=== PATIENT | female | born 1970 | race Caucasian/White ===

== ENCOUNTER 2017-09-16 03:31 | Emergency (ER) | payer SELFPAY ==
[~2017-09-16 03:31] MED LIST: ALBU0.086 INH; ALBU2.5I INH; ALBU8I INH; DUONI NEB; IPRA0.02 INH; PRED20 PO; SYMB80AE INH; VENTAER INH
[2017-09-16 03:50] VITALS: RESP 18; O2SAT 98
[2017-09-16] MEDS ORDERED: ALBUAER3 INH ×2 (03:58→05:45)
[2017-09-16] MEDS ORDERED: SYMB160A INH ×2 (03:58→05:44)
[2017-09-16] MEDS ORDERED: FAMOTIDINE 20 MG/2 ML VIAL IV PUSH SCH (04:00)
[2017-09-16] MEDS ORDERED: LIDOCAINE VISCOUS 2% SOLN 15 ML UDC SWISH-SPIT ONE (04:00)
[2017-09-16] MEDS ORDERED: ALUMINUM/MAGNESIUM/SIMETH 30 ML CUP PO ONE (04:00)
[2017-09-16] MEDS ORDERED: RESP: ALBUTEROL 2.5 MG/IPRATROPIUM 0.5 MG NEB (SCH) NEB ONE (04:00)
[2017-09-16 04:13] LABS: AUTOMATED NEUTROPHIL # 4.6 TH/MM3 (1.8-7.7); BASOPHIL % 0.4 % (0.0-2.0); EOSINOPHIL # 0.5 TH/MM3 (0-0.4); EOSINOPHIL % 5.3 % (0.0-4.0); HEMATOCRIT 41.9 % (35.0-46.0); LYMPH % 35.2 % (9.0-44.0); LYMPHOCYTE # 3.1 TH/MM3 (1.0-4.8); MEAN CELL VOLUME 89.9 FL (80.0-100.0); MEAN CORPUSCULAR HEMOGLOBIN 30.1 PG (27.0-34.0); MEAN CORPUSCULAR HGB CONC 33.5 % (32.0-36.0); MEAN PLATELET VOLUME 7.9 FL (7.0-11.0); MONO % 7.5 % (0.0-8.0); MONOCYTE # 0.7 TH/MM3 (0-0.9); NEUT % 51.6 % (16.0-70.0); PLATELET COUNT 287 TH/MM3 (150-450); RED BLOOD COUNT 4.66 MIL/MM3 (4.00-5.30); RED CELL DISTRIBUTION WIDTH 12.1 % (11.6-17.2); WHITE BLOOD COUNT 8.9 TH/MM3 (4.0-11.0)
[2017-09-16 04:14] LABS: CHLORIDE 107 MEQ/L (98-107); SODIUM (NA) 139 MEQ/L (136-145)
--- NOTE | 2017-09-16 04:14 | RADRPT ---
EXAM DATE/TIME: 09/16/2017 04:01 [place] COMPARISON: CHEST SINGLE AP, January 09, 2016, 21:32. INDICATIONS : Chest pain. MEDICAL HISTORY : None. SURGICAL HISTORY : None. ENCOUNTER: Initial ACUITY: 1 day PAIN SCORE: 8/10 LOCATION: Bilateral chest FINDINGS: A single view of the chest demonstrates the lungs to be symmetrically aerated without evidence of mas s, infiltrate or effusion. The cardiomediastinal contours are unremarkable. Osseous structures are intact. CONCLUSION: No acute disease. Fabricio Mo MD on September 16, 2017 at 4:12 Board Certified Radiologist. This report was verified electronically.
[2017-09-16 04:16] LABS: CALCIUM 8.8 MG/DL (8.5-10.1)
[2017-09-16 04:17] LABS: BICARBONATE 24.5 MEQ/L (21.0-32.0); BLOOD UREA NITROGEN 8 MG/DL (7-18); GLUCOSE,RANDOM 96 MG/DL (74-106)
[2017-09-16 04:20] LABS: CREATININE 0.75 MG/DL (0.50-1.00); GLOMERULAR FILTRATION RATE 83 ML/MIN (>89)
[2017-09-16 04:25] LABS: TROPONIN I LESS THAN 0.02 NG/ML (0.02-0.05)
[2017-09-16 04:42] VITALS: BP 119/75; PULSE 72; RESP 18; O2SAT 99
[2017-09-16] MEDS ORDERED: ONDANSETRON ODT 4 MG TAB PO ONE (04:45)
[2017-09-16] MEDS ORDERED: LORazepam 1 MG TAB PO ONE (04:45)
--- NOTE | 2017-09-16 05:13 | PD ---
HPI . SOB Chief Complaint: Chest Pain Time Seen by Provider: 03:37 Travel History International Travel<30 days: No Contact w/Intl Traveler<30days: No Traveled to known affect area: No History of Present Illness HPI pt comes in to ER at 4 AM with panting moaning presentation of SOB and " heart burn that is causing pain and SOB" pt has Hx of COPD . HAS HAD ADMISSIONS IN THE PAST FOR SAME. SHe is slightly histrionic in her presentation of her current SOB exacerbation, maoning a lot and no obvious resp distress causing her inability to answer in normal conversation of her current ROS and HPI . Reports few days of GERD and ABDO pain localized to stomach and radiation up to throat and that is exacerbating her COPD. not respodingto home HFA of symbicort and PRO- Air , PFSH Past Medical History Asthma: Yes Autoimmune Disease: No Cancer: No Cardiovascular Problems: Yes Chemotherapy: No COPD: Yes Diabetes: No Diminished Hearing: No Endocrine: No Gastrointestinal Disorders: Yes GERD: Yes Hypertension: Yes Immune Disorder: No Implanted Vascular Access Dvce: No Psychiatric: No Reproductive: No Respiratory: Yes Immunizations Current: No Migraines: Yes (A FEW YEARS AGO) Radiation Therapy: No Sickle Cell Disease: No Thyroid Disease: No Influenza Vaccination: No ?: Not Menopausal: Yes Past Surgical History Abdominal Surgery: Yes (c section) AICD: No Arteriovenous Shunt: No Section: Yes Insulin Pump: No Joint Replacement: No Pacemaker: No Other Surgery: Yes (16 YEARS AGO C SECTION) Social History Alcohol Use: Yes (SOCIAL) Tobacco Use: Yes (QUIT -17) Substance Use: Yes ([facility]) Allergies-Medications (Allergen,Severity, Reaction): Coded Allergies: No Known Allergies (Verified Adverse Reaction, Unknown, 09/16/17) Reported Meds & Prescriptions Reported Meds & Active Scripts Active Ativan (Lorazepam) 0.5 Mg Tab 0.5 Mg PO Q8H PRN Zofran Odt (Ondansetron Odt) 4 Mg Tab 4 Mg SL Q6HR PRN Azithromycin 250 Mg Tab 250 Mg PO DIRECTED Take 2 tabs (500 mg) on day 1 then 1 tab daily x 4 days. Proair Hfa 8.5 GM Inh (Albuterol Sulfate) 90 Mcg/Act Aer 2 Puff INH Q4-6H PRN 108 mcg/actuation Prednisone 50 Mg Tab 50 Mg PO DAILY Symbicort Inh (Budesonide/Formoterol Fumarate) 160-4.5 Mcg/Act Aero 2 Puff INH Q12HR Reported Proair Hfa 8.5 GM Inh (Albuterol Sulfate) 90 Mcg/Act Aer 2 Puff INH Q4-6H PRN 108 mcg/actuation Symbicort Inh (Budesonide/Formoterol Fumarate) 160-4.5 Mcg/Act Aero 2 Puff INH Q12HR Review of Systems Except as stated in HPI: all other systems reviewed are Neg Respiratory: Positive: Shortness of Breath, Wheezing Gastrointestinal: Positive: Nausea, Abdominal Pain Physical Exam Narrative GENERAL: APPEARS SOB AND ANXIOUS SKIN: Warm and dry. HEAD: Atraumatic. Normocephalic. EYES: Pupils equal and round. No scleral icterus. No injection or drainage. ENT: No nasal bleeding or discharge. Mucous membranes pink and moist. NECK: Trachea midline. No JVD. CARDIOVASCULAR: Regular rate and rhythm. RESPIRATORY: No accessory muscle use. SLIGHT WHEEZE UPPER EXPIRATORY BILATERAL MOANING WITH EACH EXPIRATION GASTROINTESTINAL: Abdomen soft, non-tender, nondistended. Hepatic and splenic margins not palpable. MUSCULOSKELETAL: Extremities without clubbing, cyanosis, or edema. No obvious deformities. NEUROLOGICAL: Awake and alert. No obvious cranial nerve deficits. Motor grossly within normal limits. Five out of 5 muscle strength in the arms and legs. Normal speech. PSYCHIATRIC: Appropriate mood and affect; insight and judgment normal. Data Data Last Documented VS Vital Signs Date Time Temp Pulse Resp B/P (MAP) Pulse Ox O2 Delivery O2 Flow Rate FiO2 09/16/17 06:27 09/16/17 06:25 74 16 97 Nasal Cannula 2.00 Orders Orders Electrocardiogram (09/16/17 03:47) Complete Blood Count With Diff (09/16/17 03:47) Basic Metabolic Panel (Bmp) (09/16/17 03:47) Ckmb (Isoenzyme) Profile (09/16/17 03:47) Troponin I (09/16/17 03:47) Chest, Single Ap (09/16/17 03:47) Iv Access Insert/Monitor (09/16/17 03:47) Ecg Monitoring (09/16/17 03:47) Oxygen Administration (09/16/17 03:47) Oximetry (09/16/17 03:47) B-Type Natriuretic Peptide (09/16/17 03:47) Albuterol-Ipratropium Neb (Duoneb Neb) (09/16/17 04:00) Famotidine Inj (Pepcid Inj) (09/16/17 04:00) Al-Mag Hy-Si 40-40-4 Mg/Ml Liq (Mag-Al P (09/16/17 04:00) Lidocaine 2% Viscous (Xylocaine 2% Visco (09/16/17 04:00) CKMB (09/16/17 03:45) CKMB% (09/16/17 03:45) Lorazepam (Ativan) (09/16/17 04:45) Ondansetron Odt (Zofran Odt) (09/16/17 04:45) Prednisone (Deltasone) (09/16/17 05:30) Ed Discharge Order (09/16/17 06:05) Labs Laboratory Tests Test 09/16/17 03:45 White Blood Count 8.9 TH/MM3 Red Blood Count 4.66 MIL/MM3 Hemoglobin 14.0 GM/DL Hematocrit 41.9 % Mean Corpuscular Volume 89.9 FL Mean Corpuscular Hemoglobin 30.1 PG Mean Corpuscular Hemoglobin Concent 33.5 % Red Cell Distribution Width 12.1 % Platelet Count 287 TH/MM3 Mean Platelet Volume 7.9 FL Neutrophils (%) (Auto) 51.6 % Lymphocytes (%) (Auto) 35.2 % Monocytes (%) (Auto) 7.5 % Eosinophils (%) (Auto) 5.3 % Basophils (%) (Auto) 0.4 % Neutrophils # (Auto) 4.6 TH/MM3 Lymphocytes # (Auto) 3.1 TH/MM3 Monocytes # (Auto) 0.7 TH/MM3 Eosinophils # (Auto) 0.5 TH/MM3 Basophils # (Auto) 0.0 TH/MM3 CBC Comment DIFF FINAL Differential Comment Blood Urea Nitrogen 8 MG/DL Creatinine 0.75 MG/DL Random Glucose 96 MG/DL Calcium Level 8.8 MG/DL Sodium Level 139 MEQ/L Potassium Level 3.4 MEQ/L Chloride Level 107 MEQ/L Carbon Dioxide Level 24.5 MEQ/L Anion Gap 8 MEQ/L Estimat Glomerular Filtration Rate 83 ML/MIN Total Creatine Kinase 124 U/L Creatine Kinase MB 1.9 NG/ML Troponin I LESS THAN 0.02 NG/ML B-Type Natriuretic Peptide 8 PG/ML MDM Medical Decision Making Medical Screen Exam Complete: Yes Emergency Medical Condition: Yes Medical Record Reviewed: Yes Differential Diagnosis SOB FROM COPD VS URI VS ANXIRTY VS GERD STIMULATING HER REACTIVE AIRWAY Narrative Course CHEST NORMAL AND EKG NSR RATE 76 BPM . PT GIVEN DUO NEB AND MAALOX AND PEPCID AND ALL LABS TROP BNP NORMAL PT TREATED COPD REACTIVE AIRWAY PREDNISONE AND ZPAK RX AND DISCHRGED WITH OUTPT PLAN TO CLOSE FOLLOW UP Diagnosis Primary Impression: Shortness of breath Additional Impression: Reactive airway disease Patient Instructions: General Instructions, Reactive Airways Disease (ED) Scripts Lorazepam (Ativan) 0.5 Mg Tab 0.5 MG PO Q8H Y for ANXIETY AND/OR AGITATION, #10 TAB 0 Refills Prov: Barry Terrell MD 09/16/17 Ondansetron Odt (Zofran Odt) 4 Mg Tab 4 MG SL Q6HR Y for Nausea/Vomiting, #12 TAB 0 Refills Prov: Barry Terrell MD 09/16/17 Azithromycin (Azithromycin) 250 Mg Tab 250 MG PO DIRECTED for Infection, #6 TAB 0 Refills Take 2 tabs (500 mg) on day 1 then 1 tab daily x 4 days. Prov: Barry Terrell MD 09/16/17 Albuterol 8.5 GM Inh (Proair Hfa 8.5 GM Inh) 90 Mcg/Act Aer 2 PUFF INH Q4-6H Y for SHORTNESS OF BREATH, #1 INHALER 0 Refills 108 mcg/actuation Prov: Barry Terrell MD 09/16/17 Prednisone (Prednisone) 50 Mg Tab 50 MG PO DAILY, #4 TAB 0 Refills Prov: Barry Terrell MD 09/16/17 Budesonide-Formoterol Inh (Symbicort Inh) 160-4.5 Mcg/Act Aero 2 PUFF INH Q12HR, #1 INHALER 0 Refills Prov: Barry Terrell MD 09/16/17 Disposition: 01 DISCHARGE HOME Condition: Good Barry Terrell MD September 16, 2017 05:13
[2017-09-16] MEDS ORDERED: predniSONE 20 MG TAB PO ONE (05:30)
[2017-09-16] MEDS ORDERED: PRED50 PO (05:44)
[2017-09-16] MEDS ORDERED: AZIT250T3 PO (05:45)
[2017-09-16] MEDS ORDERED: LORA-392 PO (05:46)
[2017-09-16] MEDS ORDERED: ZOFR4TAB3 SL (05:46)
[2017-09-16 06:25] VITALS: BP 106/61; PULSE 74; RESP 16; O2SAT 97
--- NOTE | 2017-09-16 18:18 | EKG ---
Date Performed: 09/16/2017 Time Performed: 03:41:34 PTAGE: 47 years EKG: Sinus rhythm WITH SINUS ARRHYTHMIA LOW QRS VOLTAGE IN PRECORDIAL LEADS POSSIBLE RIGHT VENTRICULAR CONDUCTION FABIEN Y BORDERLINE ECG PREVIOUS TRACING : 01/09/2016 21.33 Compared to previous tracing, sinus tachycardia no longer present DOCTOR: Larry Arshad Interpretating Date/Time 09/16/2017 18:16:11
== END 2017-09-16 06:29 | disposition home or self-care (01) ==
LOC: PHEFT 03:31 → PHED 06:29
DX: J44.9 Chronic obstructive pulmonary disease, unspecified (principal); R06.02 Shortness of breath; R94.31 Abnormal electrocardiogram [ECG] [EKG]; I10 Essential (primary) hypertension; K21.9 Gastro-esophageal reflux disease without esophagitis; F12.90 Cannabis use, unspecified, uncomplicated; Z87.891 Personal history of nicotine dependence
CPT/HCPCS: 71045; 80048; 82550; 82552; 83880; 84484; 85025; 93005; 94664; 96374; 99285; J7512